=== PATIENT | female | born 2005 | race Caucasian/White ===

== ENCOUNTER 2025-01-31 08:55 | Emergency (ER) | payer BC ==
[~2025-01-31] VITALS: Ht 165.1 cm; Wt 58.0 kg
[2025-01-31 09:08] VITALS: TEMP 98.5
[2025-01-31] MEDS ORDERED: CEPH-585 PO (11:06)
[2025-01-31] MEDS ORDERED: SULF1TAB45 PO (11:06)
[2025-01-31] MEDS: LIDOcaine 1% W/epiNEPHrine 1:100,000 20ml vial SQ ONE (11:07)
[2025-01-31 11:32] VITALS: BP 111/69; PULSE 150; RESP 16; O2SAT 98
== END 2025-01-31 11:13 | disposition home or self-care (01) ==
LOC: ER 08:56
DX: A18.01 Tuberculosis of spine (principal)
CPT/HCPCS: 10060; 87070; 99283; A6266; A6449